=== PATIENT | male | born 1945 | race American Indian/Alaskan Native ===

== ENCOUNTER 2020-09-22 16:52 | Inpatient (IN) | payer MEDICARE ==
[2020-09-22] MEDS ORDERED: MELATONIN 5 MG TAB PO PRN (17:12)
[2020-09-22] MEDS: traZODone 50 MG TAB PO SCH (23:08)
[2020-09-23 05:50] LABS: Basophils % (Auto) 0.4 % (0.0-1.8); Eosinophils # (Auto) 0.1 K/mm3 (0.0-0.4); Eosinophils % (Auto) 0.8 % (0.0-4.3); Hematocrit 32.7 % (35.5-45.6); Hemoglobin 10.9 gm/dl (11.8-15.2); Lymphocytes # (Auto) 1.7 K/mm3 (1.2-5.4); Lymphocytes % (Auto) 24.8 % (13.4-35.0); Mean Corpuscular HGB Conc 33 % (32-34); Mean Corpuscular Volume 90 fl (84-94); Monocytes # (Auto) 0.5 K/mm3 (0.0-0.8); Platelet Count 167 K/mm3 (140-440); Red Blood Count 3.65 M/mm3 (3.65-5.03); Red Cell Distribution Width 14.7 % (13.2-15.2)
[2020-09-23 06:47] LABS: Alanine Aminotransferase 19 units/L (7-56); Albumin 2.8 g/dL (3.9-5); BUN/Creatinine Ratio 41; Blood Urea Nitrogen 41 mg/dL (9-20); Calcium 8.3 mg/dL (8.4-10.2); Chol/HDL Ratio 2.14 %; HDL Cholesterol 48 mg/dL (40-59); Hemolysis Index 7; LDL Cholesterol,Direct 51 mg/dL (50-130)
--- NOTE | 2020-09-23 08:05 | History and Physical Report ---
GP History & Physical - History of Present Illness Date of admission: 09/22/20 Date of Examination: 09/23/20 Reason for Admission: Impaired reality testing, Psychopathology interference History of Present Illness: HPI Patient is a 75-year-old , unemployed currently on social security benefit, male who states that he is currently has his own place that he went with no past psychiatric history and endorses past medical history of hypertension who was admitted to the facility for wandering and being delusional thinking that God is his brother. Today, patient states that this happens to him most time, he is walking on the street going back home and gets picked up and dropped in a hospital. he denies any prior psychiatric history or known drug use. Patient states he has a family in [place] that rarely checks on him and a son in [place] whom he rarely sees and has not contacted in over 50 years. PAST PSYCHIATRIC HISTORY Diagnoses: None Suicide attempts or Self-harm behavior: none Prior psychiatric hospitalizations: None Substance Abuse history: none Previous psychiatric medications tried: none Outpatient treatment: none PAST MEDICAL HISTORY: HTN Family Psychiatric History: None reported or documented SOCIAL HISTORY Marital Status: Living Arrangements: Rent Employment Status: [employer] Access to guns/weapons: none Education: 11th grade History of Abuse: none Legal History: yes REVIEW OF SYSTEMS Constitutional: Negative for weight loss ENT: Negative for stridor Respiratory: Negative for cough or hemoptysis All other systems reviewed and are negative MENTAL STATUS EXAMINATION General Appearance and Behavior: Age appropriate, good hygiene, wearing appropriate clothes, good eye contact, cooperative polite with questioning. Cooperation: Participating/engaged Psychomotor Behavior: unremarkable and within normal limits Mood: Good Affect and affective range: congruent with mood Thought Process: Fluent/Logical, Thought Content: Within reality, Speech: Normal volume, Regular rate and rhythm, Intellectual Functioning: Average Suicidal Ideation: Denies SI Homicidal Ideation: Denies HI Impulse Control: Unimpaired Insight and Judgment: Normal insight and judgment, Memory: Normal, Attention: Normal, Orientation: Alert, oriented, Assessment and Plan - Psychiatric problem (1) Unspecified episodic mood disorder Current Visit: Yes Status: Acute Treatment Plan Start Seroquel [facility] Patient admitted for inpatient psychiatric evaluation, medication adjustment and close monitoring The patient's behavior, mood, sleep and appetite will be closely monitored. Patient enrolled in individual and group therapeutic sessions and encouraged to attend. Patient provided with a safe and structured environment. Patient's physical health needs will be addressed by the Hospitalist. Hospitalist Consulted Labs including CBC, CMP, Lipid profile and Hemoglobin A1C levels ordered for baseline reference Social Assessment will be completed and the Auger Supervisor will work with patient and family to ensure a suitable and safe disposition Medication adjustment will be made as clinically indicated Usual Wellness Zoroastrian/Preservation: - Start Trazodone 50 mg po QHS & 50 mg po QHS PRN between 10 PM & 2 AM for insomnia - Start Melatonin 5 mg po QHS to promote circadian rhythm - Start [place]-3 for brain health, reduce impulsivity, and as adjunctive treatment for mood disorder, continue upon discharge given overall benefits. - Start B1 prophylaxis with 200 mg po for 5 days The patient agreed on the treatment plan, understood the risk, benefit, alternative treatment, potential consequence of no treatment, and gave informed consent. Initial Certification Inpatient psych services: I certify that the inpatient psychiatric services are required for treatment that could reasonably be expected to improve the patient's condition. Estimated days: 6 Post hospital care: primary care provider, psychiatric provider Legal Status: Voluntary Patient Problems: Current Active Problems Unspecified episodic mood disorder (Acute) Reaction to Hospitalization: Accepting Medications and Allergies Allergies Allergy/AdvReac Type Severity Reaction Status Date / Time aspirin Allergy Unknown Unverified 09/22/20 17:00 codeine Allergy Unknown Unverified 09/22/20 17:00 Home Medications Medication Instructions Recorded Confirmed Last Taken Type Apixaban [Eliquis] 5 mg PO BID 09/23/20 09/23/20 Unknown History AtorvaSTATin 10 mg PO HS 09/23/20 09/23/20 Unknown History Pantoprazole [Protonix TAB] 40 mg PO DAILY 09/23/20 09/23/20 Unknown History amLODIPine 5 mg PO DAILY 09/23/20 09/23/20 Unknown History hydrALAZINE [Apresoline TAB] 25 mg PO TID 09/23/20 09/23/20 Unknown History Active Meds: Active Medications Melatonin (Melatonin 5 Mg Tab) 5 mg PO QHS PRN PRN Reason: Sleep Trazodone HCl (Trazodone 50 Mg Tab) 50 mg PO QHS JOSELUIS Last Admin: 09/22/20 23:08 Dose: Not Given Documented by: Results - Results Labs/Vitals: Laboratory Last Values WBC 7.0 K/mm3 (4.5-11.0) 09/23/20 05:42 RBC 3.65 M/mm3 (3.65-5.03) 09/23/20 05:42 Hgb 10.9 gm/dl (11.8-15.2) L 09/23/20 05:42 Hct 32.7 % (35.5-45.6) L 09/23/20 05:42 MCV 90 fl (84-94) 09/23/20 05:42 MCH 30 pg (28-32) 09/23/20 05:42 MCHC 33 % (32-34) 09/23/20 05:42 RDW 14.7 % (13.2-15.2) 09/23/20 05:42 Plt Count 167 K/mm3 (140-440) 09/23/20 05:42 Lymph % (Auto) 24.8 % (13.4-35.0) 09/23/20 05:42 [place] % (Auto) 7.0 % (0.0-7.3) 09/23/20 05:42 Eos % (Auto) 0.8 % (0.0-4.3) 09/23/20 05:42 Baso % (Auto) 0.4 % (0.0-1.8) 09/23/20 05:42 Lymph # (Auto) 1.7 K/mm3 (1.2-5.4) 09/23/20 05:42 [place] # (Auto) 0.5 K/mm3 (0.0-0.8) 09/23/20 05:42 Eos # (Auto) 0.1 K/mm3 (0.0-0.4) 09/23/20 05:42 Baso # (Auto) 0.0 K/mm3 (0.0-0.1) 09/23/20 05:42 Seg Neutrophils % 67.0 % (40.0-70.0) 09/23/20 05:42 Seg Neutrophils # 4.7 K/mm3 (1.8-7.7) 09/23/20 05:42 Sodium 143 mmol/L (137-145) 09/23/20 05:42 Potassium 4.0 mmol/L (3.6-5.0) 09/23/20 05:42 Chloride 108.2 mmol/L (98-107) H 09/23/20 05:42 Carbon Dioxide 27 mmol/L (22-30) 09/23/20 05:42 Anion Gap 12 mmol/L 09/23/20 05:42 BUN 41 mg/dL (9-20) H 09/23/20 05:42 Creatinine 1.0 mg/dL (0.8-1.3) 09/23/20 05:42 Estimated GFR > 60 ml/min 09/23/20 05:42 BUN/Creatinine Ratio 41 % 09/23/20 05:42 Glucose 101 mg/dL (75-100) H 09/23/20 05:42 Hemoglobin A1c 5.8 % (4-6) 09/23/20 05:42 Calcium 8.3 mg/dL (8.4-10.2) L 09/23/20 05:42 Total Bilirubin 0.20 mg/dL (0.1-1.2) 09/23/20 05:42 AST 21 units/L (5-40) 09/23/20 05:42 ALT 19 units/L (7-56) 09/23/20 05:42 Alkaline Phosphatase 60 units/L (35-129) 09/23/20 05:42 Total Protein 5.2 g/dL (6.3-8.2) L 09/23/20 05:42 Albumin 2.8 g/dL (3.9-5) L 09/23/20 05:42 Albumin/Globulin Ratio 1.2 % 09/23/20 05:42 Triglycerides 64 mg/dL (2-149) 09/23/20 05:42 Cholesterol 103 mg/dL (50-199) 09/23/20 05:42 LDL Cholesterol Direct 51 mg/dL (50-130) 09/23/20 05:42 HDL Cholesterol 48 mg/dL (40-59) 09/23/20 05:42 Cholesterol/HDL Ratio 2.14 % 09/23/20 05:42 TSH 1.190 mlU/mL (0.270-4.200) 09/23/20 05:42 Assessment and Plan - Psychiatric problem (1) Unspecified episodic mood disorder Current Visit: Yes Status: Acute Physician Certification - Certification Statement Physician Certification Statement: This is an acknowledgement statement that DERICK PINK is a 75 year old M who requires inpatient psychiatric admission for treatment which could reasonably be expected to improve the patient's condition for Estimated period of time patient will need to remain in the hospital: [ ] Plan for post-hospital care: [ ]
--- NOTE | 2020-09-23 09:58 | Consultation ---
History of Present Illness - Reason for Consult Consult date: 09/23/20 Medical consult Requesting physician: RUBA PABLO - History of Present Illness 75-year-old male patient with significant past medical history of hypertension, altered level of consciousness dementia was admitted through emergency room to [facility] for further evaluation and management of patient's impaired reality testing, for wandering and for delusional thinking and behavior, patient thinks that God is his brother, and then intermittently confused. Hospitalist service was requested for medical consult. Patient has history of hypertension on amlodipine and hydralazine As well as encephalopathy and possible dementia At the time of my evaluation patient did not have any new complaints Denies chest pain or shortness of breath Denies headache or dizziness Denies nausea or vomiting Patient is calm and composed no agitation or aggression No delusional thoughts or behavior Past History Past Medical History: atrial fib, hypertension, hyperlipidemia, other (Encephalopathy, delusional behavior, schizophrenia) Past Surgical History: Other (Pacemaker) Social history: denies: smoking, alcohol abuse Family history: no significant family history Medications and Allergies Allergies Allergy/AdvReac Type Severity Reaction Status Date / Time aspirin Allergy Unknown Unverified 09/22/20 17:00 codeine Allergy Unknown Unverified 09/22/20 17:00 Home Medications Medication Instructions Recorded Confirmed Last Taken Type Apixaban [Eliquis] 5 mg PO BID 09/23/20 09/23/20 Unknown History AtorvaSTATin 10 mg PO HS 09/23/20 09/23/20 Unknown History Pantoprazole [Protonix TAB] 40 mg PO DAILY 09/23/20 09/23/20 Unknown History amLODIPine 5 mg PO DAILY 09/23/20 09/23/20 Unknown History hydrALAZINE [Apresoline TAB] 25 mg PO TID 09/23/20 09/23/20 Unknown History Active Meds: Active Medications Melatonin (Melatonin 5 Mg Tab) 5 mg PO QHS PRN PRN Reason: Sleep Quetiapine Fumarate (Quetiapine 100 Mg Tab) 100 mg PO QHS JOSELUIS Trazodone HCl (Trazodone 50 Mg Tab) 50 mg PO QHS JOSELUIS Last Admin: 09/22/20 23:08 Dose: Not Given Documented by: Review of Systems Constitutional: weakness, no weight loss, no weight gain, no fever Ears, nose, mouth and throat: no nasal congestion, no nasal discharge Cardiovascular: no chest pain, no orthopnea Respiratory: no cough, no shortness of breath Gastrointestinal: no abdominal pain, no nausea, no vomiting Genitourinary Male: no dysuria, no hematuria, no flank pain Musculoskeletal: no myalgias, no arthritis Integumentary: no rash, no lesions Neurological: no seizures, no syncope Psychiatric: paranoia, anxiety attacks, confusion, other Endocrine: no cold intolerance, no heat intolerance Hematologic/Lymphatic: no easy bruising, no easy bleeding Allergic/Immunologic: no urticaria, no allergic rhinitis Exam - Constitutional General appearance: Present: no acute distress, well-nourished - EENT Eyes: Present: PERRL, EOM intact ENT: hearing intact, clear oral mucosa - Neck Neck: Present: supple, normal ROM - Respiratory Respiratory effort: normal Respiratory: bilateral: diminished, negative: rales, rhonchi, wheezing - Cardiovascular Rhythm: regular Heart Sounds: Present: S1 & S2 - Extremities Extremities: no ischemia, No edema - Abdominal General gastrointestinal: Present: soft, non-tender, non-distended, normal bowel sounds - Integumentary Integumentary: Present: clear, warm - Musculoskeletal Musculoskeletal: strength equal bilaterally, generalized weakness - Psychiatric Psychiatric: appropriate mood/affect, other (Confused at times) - Neurologic Neurologic: moves all extremities Results - Labs CBC & Chem 7: 09/23/20 05:42 09/23/20 05:42 Labs: Abnormal lab results 09/23/20 09/23/20 Range/Units 05:42 05:42 Hgb 10.9 L (11.8-15.2) gm/dl Hct 32.7 L (35.5-45.6) % Chloride 108.2 H (98-107) mmol/L BUN 41 H (9-20) mg/dL Glucose 101 H (75-100) mg/dL Calcium 8.3 L (8.4-10.2) mg/dL Total Protein 5.2 L (6.3-8.2) g/dL Albumin 2.8 L (3.9-5) g/dL Assessment and Plan --Schizophrenia; Management per psych --Hypertension; moderate control Resume home antihypertensives and as needed medications --History of A. fib; Rate controlled. Continue current management Resume chronic anticoagulation with Eliquis --Dyslipidemia; Resume home statin --DVT prophylaxis; Patient is already on Eliquis --DC planning; per case management We will closely monitor the patient and adjust the management as needed Plan of care reviewed with the patient's nurse Thank you for this consultation We will follow the patient along with you as needed Call us with questions or concerns
[2020-09-23] MEDS: hydrALAZINE 25 MG TAB PO SCH (20:57)
[2020-09-23] MEDS ORDERED: NON-FORMULARY EACH (Apixaban 5 MG Tablet) PO SCH (22:00)
[2020-09-23] MEDS: traZODone 50 MG TAB PO SCH (22:16)
[2020-09-23] MEDS: APIXABAN 5 MG TAB PO SCH (22:16)
[2020-09-23] MEDS: QUEtiapine 100 MG TAB PO SCH (22:16)
--- NOTE | 2020-09-24 07:43 | Progress Note ---
Subjective Date of service: 09/24/20 Principal diagnosis: Unspecified episodic mood disorder Subjective Comment: Psych Nurse: 1855 Pt calm and cooperative, always asking for food and something to drink, other than water. Slightly depressed, but participated in group.. Staff will continue to monitor. Psych Progress Note Patient seen this am, endorses a good night rest, states he cant wait to have breakfast this AM. Patient states he does not even known why he is here to begin with, nurse reports patient has been cooperative and calm, no behavioral disturbances. REVIEW OF SYSTEMS Constitutional: Negative for weight loss ENT: Negative for stridor Respiratory: Negative for cough or hemoptysis All other systems reviewed and are negative MENTAL STATUS EXAMINATION General Appearance and Behavior: Age appropriate, good hygiene, wearing appropriate clothes, good eye contact, cooperative polite with questioning. Cooperation: Participating/engaged Psychomotor Behavior: unremarkable and within normal limits Mood: Good Affect and affective range: congruent with mood Thought Process: Fluent/Logical, Thought Content: Within reality, Speech: Normal volume, Regular rate and rhythm, Intellectual Functioning: Average Suicidal Ideation: Denies SI Homicidal Ideation: Denies HI Impulse Control: Unimpaired Insight and Judgment: Normal insight and judgment, Memory: Normal, Attention: Normal, Orientation: Alert, oriented, Assessment and Plan - Psychiatric problem (1) Unspecified episodic mood disorder Current Visit: Yes Status: Acute Treatment Plan Start Seroquel QHS Patient admitted for inpatient psychiatric evaluation, medication adjustment and close monitoring The patient's behavior, mood, sleep and appetite will be closely monitored. Patient enrolled in individual and group therapeutic sessions and encouraged to attend. Patient provided with a safe and structured environment. Patient's physical health needs will be addressed by the Hospitalist. Hospitalist Consulted Labs including CBC, CMP, Lipid profile and Hemoglobin A1C levels ordered for baseline reference Social Assessment will be completed and the Rn Forensic will work with patient and family to ensure a suitable and safe disposition Medication adjustment will be made as clinically indicated Usual Wellness Episcopalian/Preservation: - Start Trazodone 50 mg po QHS & 50 mg po QHS PRN between 10 PM & 2 AM for insomnia - Start Melatonin 5 mg po QHS to promote circadian rhythm - Start [place]-3 for brain health, reduce impulsivity, and as adjunctive treatment for mood disorder, continue upon discharge given overall benefits. - Start B1 prophylaxis with 200 mg po for 5 days The patient agreed on the treatment plan, understood the risk, benefit, alternative treatment, potential consequence of no treatment, and gave informed consent. Initial Certification Inpatient psych services: I certify that the inpatient psychiatric services are required for treatment that could reasonably be expected to improve the patient's condition. Estimated days: 5 Post hospital care: primary care provider, psychiatric provider Assessment and Plan - Patient Problems (1) Unspecified episodic mood disorder Current Visit: Yes Status: Acute Medications and Allergies Allergies Allergy/AdvReac Type Severity Reaction Status Date / Time aspirin Allergy Unknown Unverified 09/22/20 17:00 codeine Allergy Unknown Unverified 09/22/20 17:00 Home Medications Medication Instructions Recorded Confirmed Last Taken Type Apixaban [Eliquis] 5 mg PO BID 09/23/20 09/23/20 Unknown History AtorvaSTATin 10 mg PO HS 09/23/20 09/23/20 Unknown History Pantoprazole [Protonix TAB] 40 mg PO DAILY 09/23/20 09/23/20 Unknown History amLODIPine 5 mg PO DAILY 09/23/20 09/23/20 Unknown History hydrALAZINE [Apresoline TAB] 25 mg PO TID 09/23/20 09/23/20 Unknown History Active Meds: Active Medications Amlodipine Besylate (Amlodipine 5 Mg Tab) 5 mg PO DAILY [facility] Apixaban (Apixaban 5 Mg Tab) 5 mg PO Q12HR [facility] Last Admin: 09/23/20 22:16 Dose: 5 mg Documented by: Atorvastatin Calcium (Atorvastatin 10 Mg Tab) 10 mg PO HS [facility] Last Admin: 09/23/20 22:16 Dose: 10 mg Documented by: Hydralazine HCl (Hydralazine 25 Mg Tab) 25 mg PO TID [facility] Last Admin: 09/23/20 20:57 Dose: 25 mg Documented by: Melatonin (Melatonin 5 Mg Tab) 5 mg PO QHS PRN PRN Reason: Sleep Pantoprazole Sodium (Pantoprazole 40 Mg Tab) 40 mg PO DAILY [facility] Quetiapine Fumarate (Quetiapine 100 Mg Tab) 100 mg PO QHS [facility] Last Admin: 09/23/20 22:16 Dose: 100 mg Documented by: Trazodone HCl (Trazodone 50 Mg Tab) 50 mg PO QHS [facility] Last Admin: 09/23/20 22:16 Dose: 50 mg Documented by: Results - Results Labs/Vitals: Laboratory Last Values WBC 7.0 K/mm3 (4.5-11.0) 09/23/20 05:42 RBC 3.65 M/mm3 (3.65-5.03) 09/23/20 05:42 Hgb 10.9 gm/dl (11.8-15.2) L 09/23/20 05:42 Hct 32.7 % (35.5-45.6) L 09/23/20 05:42 MCV 90 fl (84-94) 09/23/20 05:42 MCH 30 pg (28-32) 09/23/20 05:42 MCHC 33 % (32-34) 09/23/20 05:42 RDW 14.7 % (13.2-15.2) 09/23/20 05:42 Plt Count 167 K/mm3 (140-440) 09/23/20 05:42 Lymph % (Auto) 24.8 % (13.4-35.0) 09/23/20 05:42 [place] % (Auto) 7.0 % (0.0-7.3) 09/23/20 05:42 Eos % (Auto) 0.8 % (0.0-4.3) 09/23/20 05:42 Baso % (Auto) 0.4 % (0.0-1.8) 09/23/20 05:42 Lymph # (Auto) 1.7 K/mm3 (1.2-5.4) 09/23/20 05:42 [place] # (Auto) 0.5 K/mm3 (0.0-0.8) 09/23/20 05:42 Eos # (Auto) 0.1 K/mm3 (0.0-0.4) 09/23/20 05:42 Baso # (Auto) 0.0 K/mm3 (0.0-0.1) 09/23/20 05:42 Seg Neutrophils % 67.0 % (40.0-70.0) 09/23/20 05:42 Seg Neutrophils # 4.7 K/mm3 (1.8-7.7) 09/23/20 05:42 Sodium 143 mmol/L (137-145) 09/23/20 05:42 Potassium 4.0 mmol/L (3.6-5.0) 09/23/20 05:42 Chloride 108.2 mmol/L (98-107) H 09/23/20 05:42 Carbon Dioxide 27 mmol/L (22-30) 09/23/20 05:42 Anion Gap 12 mmol/L 09/23/20 05:42 BUN 41 mg/dL (9-20) H 09/23/20 05:42 Creatinine 1.0 mg/dL (0.8-1.3) 09/23/20 05:42 Estimated GFR > 60 ml/min 09/23/20 05:42 BUN/Creatinine Ratio 41 % 09/23/20 05:42 Glucose 101 mg/dL (75-100) H 09/23/20 05:42 Hemoglobin A1c 5.8 % (4-6) 09/23/20 05:42 Calcium 8.3 mg/dL (8.4-10.2) L 09/23/20 05:42 Total Bilirubin 0.20 mg/dL (0.1-1.2) 09/23/20 05:42 AST 21 units/L (5-40) 09/23/20 05:42 ALT 19 units/L (7-56) 09/23/20 05:42 Alkaline Phosphatase 60 units/L (35-129) 09/23/20 05:42 Total Protein 5.2 g/dL (6.3-8.2) L 09/23/20 05:42 Albumin 2.8 g/dL (3.9-5) L 09/23/20 05:42 Albumin/Globulin Ratio 1.2 % 09/23/20 05:42 Triglycerides 64 mg/dL (2-149) 09/23/20 05:42 Cholesterol 103 mg/dL (50-199) 09/23/20 05:42 LDL Cholesterol Direct 51 mg/dL (50-130) 09/23/20 05:42 HDL Cholesterol 48 mg/dL (40-59) 09/23/20 05:42 Cholesterol/HDL Ratio 2.14 % 09/23/20 05:42 TSH 1.190 mlU/mL (0.270-4.200) 09/23/20 05:42 Last Vital Signs Temp 98.4 F 09/23/20 22:00 Pulse 63 09/23/20 22:00 Resp 16 09/23/20 22:00 BP 126/60 09/23/20 22:00 Pulse Ox 96 09/23/20 22:00
[2020-09-24] MEDS: amLODIPine 5 MG TAB PO SCH (11:13)
[2020-09-24] MEDS: APIXABAN 5 MG TAB PO SCH ×2 (11:13→21:15)
[2020-09-24] MEDS: PANTOPRAZOLE 40 MG TAB PO SCH (11:14)
[2020-09-24] MEDS: hydrALAZINE 25 MG TAB PO SCH ×3 (11:14→20:26)
[2020-09-24] MEDS: traZODone 50 MG TAB PO SCH (21:15)
[2020-09-24] MEDS: QUEtiapine 100 MG TAB PO SCH (21:15)
--- NOTE | 2020-09-25 07:42 | Progress Note ---
Subjective Date of service: 09/25/20 Principal diagnosis: Unspecified episodic mood disorder Subjective Comment: Psych Nurse:pt has been calm and cooperative, alert and oriented to person and place, able to make needs known, medication compliant, good appetite, consumed 100% of snack, no complaints voiced, no distress noted, will continue to monitor for safety. Psych Progress Note Patient describes a good and stable mood, denies being depressed or excessively nervous. Patient eats and sleeps well. Patient denies panic attacks, recurrent nightmares or flashbacks. Patient denies symptoms suggestive of OCD or PTSD. Patient denies hallucinations, paranoia, thought interference and no features suggestive of hypomania or prakash. Patiently completely denies suicidal or homicidal thoughts. REVIEW OF SYSTEMS Constitutional: Negative for weight loss ENT: Negative for stridor Respiratory: Negative for cough or hemoptysis All other systems reviewed and are negative MENTAL STATUS EXAMINATION General Appearance and Behavior: Age appropriate, good hygiene, wearing appropriate clothes, good eye contact, cooperative polite with questioning. Cooperation: Participating/engaged Psychomotor Behavior: unremarkable and within normal limits Mood: Good Affect and affective range: congruent with mood Thought Process: Fluent/Logical, Thought Content: Within reality, Speech: Normal volume, Regular rate and rhythm, Intellectual Functioning: Average Suicidal Ideation: Denies SI Homicidal Ideation: Denies HI Impulse Control: Unimpaired Insight and Judgment: Normal insight and judgment, Memory: Normal, Attention: Normal, Orientation: Alert, oriented, Assessment and Plan - Psychiatric problem (1) Unspecified episodic mood disorder Current Visit: Yes Status: Acute Treatment Plan Start Seroquel QHS Patient admitted for inpatient psychiatric evaluation, medication adjustment and close monitoring The patient's behavior, mood, sleep and appetite will be closely monitored. Patient enrolled in individual and group therapeutic sessions and encouraged to attend. Patient provided with a safe and structured environment. Patient's physical health needs will be addressed by the Hospitalist. Hospitalist Consulted Labs including CBC, CMP, Lipid profile and Hemoglobin A1C levels ordered for baseline reference Social Assessment will be completed and the Manager Database Administration will work with patient and family to ensure a suitable and safe disposition Medication adjustment will be made as clinically indicated Usual Wellness Orthodoxy/Preservation: - Start Trazodone 50 mg po QHS & 50 mg po QHS PRN between 10 PM & 2 AM for insomnia - Start Melatonin 5 mg po QHS to promote circadian rhythm - Start Strunk-3 for brain health, reduce impulsivity, and as adjunctive treatment for mood disorder, continue upon discharge given overall benefits. - Start B1 prophylaxis with 200 mg po for 5 days The patient agreed on the treatment plan, understood the risk, benefit, alternative treatment, potential consequence of no treatment, and gave informed consent. Initial Certification Inpatient psych services: I certify that the inpatient psychiatric services are required for treatment that could reasonably be expected to improve the patient's condition. Estimated days: 4 Post hospital care: primary care provider, psychiatric provider Assessment and Plan - Patient Problems (1) Unspecified episodic mood disorder Current Visit: Yes Status: Acute Medications and Allergies Allergies Allergy/AdvReac Type Severity Reaction Status Date / Time aspirin Allergy Unknown Unverified 09/22/20 17:00 codeine Allergy Unknown Unverified 09/22/20 17:00 Home Medications Medication Instructions Recorded Confirmed Last Taken Type Apixaban [Eliquis] 5 mg PO BID 09/23/20 09/23/20 Unknown History AtorvaSTATin 10 mg PO HS 09/23/20 09/23/20 Unknown History Pantoprazole [Protonix TAB] 40 mg PO DAILY 09/23/20 09/23/20 Unknown History amLODIPine 5 mg PO DAILY 09/23/20 09/23/20 Unknown History hydrALAZINE [Apresoline TAB] 25 mg PO TID 09/23/20 09/23/20 Unknown History Active Meds: Active Medications Amlodipine Besylate (Amlodipine 5 Mg Tab) 5 mg PO DAILY [facility] Last Admin: 09/24/20 11:13 Dose: 5 mg Documented by: Apixaban (Apixaban 5 Mg Tab) 5 mg PO Q12HR [facility] Last Admin: 09/24/20 21:15 Dose: 5 mg Documented by: Atorvastatin Calcium (Atorvastatin 10 Mg Tab) 10 mg PO HS [facility] Last Admin: 09/24/20 21:15 Dose: 10 mg Documented by: Hydralazine HCl (Hydralazine 25 Mg Tab) 25 mg PO TID [facility] Last Admin: 09/24/20 20:26 Dose: 25 mg Documented by: Melatonin (Melatonin 5 Mg Tab) 5 mg PO QHS PRN PRN Reason: Sleep Pantoprazole Sodium (Pantoprazole 40 Mg Tab) 40 mg PO DAILY [facility] Last Admin: 09/24/20 11:14 Dose: 40 mg Documented by: Quetiapine Fumarate (Quetiapine 100 Mg Tab) 100 mg PO QHS [facility] Last Admin: 09/24/20 21:15 Dose: 100 mg Documented by: Trazodone HCl (Trazodone 50 Mg Tab) 50 mg PO QHS [facility] Last Admin: 09/24/20 21:15 Dose: 50 mg Documented by: Results - Results Labs/Vitals: Laboratory Last Values WBC 7.0 K/mm3 (4.5-11.0) 09/23/20 05:42 RBC 3.65 M/mm3 (3.65-5.03) 09/23/20 05:42 Hgb 10.9 gm/dl (11.8-15.2) L 09/23/20 05:42 Hct 32.7 % (35.5-45.6) L 09/23/20 05:42 MCV 90 fl (84-94) 09/23/20 05:42 MCH 30 pg (28-32) 09/23/20 05:42 MCHC 33 % (32-34) 09/23/20 05:42 RDW 14.7 % (13.2-15.2) 09/23/20 05:42 Plt Count 167 K/mm3 (140-440) 09/23/20 05:42 Lymph % (Auto) 24.8 % (13.4-35.0) 09/23/20 05:42 [place] % (Auto) 7.0 % (0.0-7.3) 09/23/20 05:42 Eos % (Auto) 0.8 % (0.0-4.3) 09/23/20 05:42 Baso % (Auto) 0.4 % (0.0-1.8) 09/23/20 05:42 Lymph # (Auto) 1.7 K/mm3 (1.2-5.4) 09/23/20 05:42 [place] # (Auto) 0.5 K/mm3 (0.0-0.8) 09/23/20 05:42 Eos # (Auto) 0.1 K/mm3 (0.0-0.4) 09/23/20 05:42 Baso # (Auto) 0.0 K/mm3 (0.0-0.1) 09/23/20 05:42 Seg Neutrophils % 67.0 % (40.0-70.0) 09/23/20 05:42 Seg Neutrophils # 4.7 K/mm3 (1.8-7.7) 09/23/20 05:42 Sodium 143 mmol/L (137-145) 09/23/20 05:42 Potassium 4.0 mmol/L (3.6-5.0) 09/23/20 05:42 Chloride 108.2 mmol/L (98-107) H 09/23/20 05:42 Carbon Dioxide 27 mmol/L (22-30) 09/23/20 05:42 Anion Gap 12 mmol/L 09/23/20 05:42 BUN 41 mg/dL (9-20) H 09/23/20 05:42 Creatinine 1.0 mg/dL (0.8-1.3) 09/23/20 05:42 Estimated GFR > 60 ml/min 09/23/20 05:42 BUN/Creatinine Ratio 41 % 09/23/20 05:42 Glucose 101 mg/dL (75-100) H 09/23/20 05:42 Hemoglobin A1c 5.8 % (4-6) 09/23/20 05:42 Calcium 8.3 mg/dL (8.4-10.2) L 09/23/20 05:42 Total Bilirubin 0.20 mg/dL (0.1-1.2) 09/23/20 05:42 AST 21 units/L (5-40) 09/23/20 05:42 ALT 19 units/L (7-56) 09/23/20 05:42 Alkaline Phosphatase 60 units/L (35-129) 09/23/20 05:42 Total Protein 5.2 g/dL (6.3-8.2) L 09/23/20 05:42 Albumin 2.8 g/dL (3.9-5) L 09/23/20 05:42 Albumin/Globulin Ratio 1.2 % 09/23/20 05:42 Triglycerides 64 mg/dL (2-149) 09/23/20 05:42 Cholesterol 103 mg/dL (50-199) 09/23/20 05:42 LDL Cholesterol Direct 51 mg/dL (50-130) 09/23/20 05:42 HDL Cholesterol 48 mg/dL (40-59) 09/23/20 05:42 Cholesterol/HDL Ratio 2.14 % 09/23/20 05:42 TSH 1.190 mlU/mL (0.270-4.200) 09/23/20 05:42 Last Vital Signs Temp 98.7 F 09/24/20 22:00 Pulse 63 09/24/20 22:00 Resp 15 09/24/20 22:00 BP 147/67 09/24/20 22:00 Pulse Ox 99 09/24/20 19:47
[2020-09-25] MEDS: amLODIPine 5 MG TAB PO SCH (09:18)
[2020-09-25] MEDS: PANTOPRAZOLE 40 MG TAB PO SCH (09:18)
[2020-09-25] MEDS: APIXABAN 5 MG TAB PO SCH ×2 (09:18→21:08)
[2020-09-25] MEDS: hydrALAZINE 25 MG TAB PO SCH ×3 (09:19→20:56)
--- NOTE | 2020-09-25 10:07 | Discharge Summary ---
Providers - Providers Date of Admission: 09/22/20 22:43 Date of discharge: 09/25/20 Attending physician: RUBA PABLO MD 09/22/20 17:09 Consult to Physician [CONS] Routine Comment: Consulting Provider: MARKO ELLIS Physician Instructions: Reason For Exam: Med Magt Primary care physician: TECHNOLOGY EDUCATION TEACHER Hospitalization Reason for admission: Psychopathological interference Condition: Good Hospital course: The patient was provided inpatient psychiatric treatment with safe and supportive environment, group/individual therapy, psychiatric medication, medication adjustment, adverse effect monitor, medical evaluation, medical treatment, social service assessment, social support meeting, placement ass essment and psycho-education. The patients mood, cognition, behavior, motivation, compliance to treatment and appreciation on family/social support are improved and stabilized. At the time of discharge, the patient had no suicidal ideas, no homicidal ideas, no aggressive thoughts, no endangering behavior and no debilitating adverse effects. The patient agreed on the treatment plan, understood the risk, benefit, alternative treatment, potential consequence of no treatment, and gave informed consent. Over 35 minutes spent for discharge process, education and behavioral Disposition: DC-01 TO HOME OR SELFCARE Allergies/Adverse Reactions: Allergies aspirin Allergy (Unverified 09/22/20 17:00) Unknown codeine Allergy (Unverified 09/22/20 17:00) Unknown Vital Signs: Last Vital Signs Temp 98.6 F 09/25/20 08:22 Pulse 56 L 09/25/20 09:19 Resp 18 09/25/20 08:22 BP 107/50 09/25/20 09:19 Pulse Ox 94 09/25/20 08:22 Last Lab: Laboratory Last Values WBC 7.0 K/mm3 (4.5-11.0) 09/23/20 05:42 RBC 3.65 M/mm3 (3.65-5.03) 09/23/20 05:42 Hgb 10.9 gm/dl (11.8-15.2) L 09/23/20 05:42 Hct 32.7 % (35.5-45.6) L 09/23/20 05:42 MCV 90 fl (84-94) 09/23/20 05:42 MCH 30 pg (28-32) 09/23/20 05:42 MCHC 33 % (32-34) 09/23/20 05:42 RDW 14.7 % (13.2-15.2) 09/23/20 05:42 Plt Count 167 K/mm3 (140-440) 09/23/20 05:42 Lymph % (Auto) 24.8 % (13.4-35.0) 09/23/20 05:42 [place] % (Auto) 7.0 % (0.0-7.3) 09/23/20 05:42 Eos % (Auto) 0.8 % (0.0-4.3) 09/23/20 05:42 Baso % (Auto) 0.4 % (0.0-1.8) 09/23/20 05:42 Lymph # (Auto) 1.7 K/mm3 (1.2-5.4) 09/23/20 05:42 [place] # (Auto) 0.5 K/mm3 (0.0-0.8) 09/23/20 05:42 Eos # (Auto) 0.1 K/mm3 (0.0-0.4) 09/23/20 05:42 Baso # (Auto) 0.0 K/mm3 (0.0-0.1) 09/23/20 05:42 Seg Neutrophils % 67.0 % (40.0-70.0) 09/23/20 05:42 Seg Neutrophils # 4.7 K/mm3 (1.8-7.7) 09/23/20 05:42 Sodium 143 mmol/L (137-145) 09/23/20 05:42 Potassium 4.0 mmol/L (3.6-5.0) 09/23/20 05:42 Chloride 108.2 mmol/L (98-107) H 09/23/20 05:42 Carbon Dioxide 27 mmol/L (22-30) 09/23/20 05:42 Anion Gap 12 mmol/L 09/23/20 05:42 BUN 41 mg/dL (9-20) H 09/23/20 05:42 Creatinine 1.0 mg/dL (0.8-1.3) 09/23/20 05:42 Estimated GFR > 60 ml/min 09/23/20 05:42 BUN/Creatinine Ratio 41 % 09/23/20 05:42 Glucose 101 mg/dL (75-100) H 09/23/20 05:42 Hemoglobin A1c 5.8 % (4-6) 09/23/20 05:42 Calcium 8.3 mg/dL (8.4-10.2) L 09/23/20 05:42 Total Bilirubin 0.20 mg/dL (0.1-1.2) 09/23/20 05:42 AST 21 units/L (5-40) 09/23/20 05:42 ALT 19 units/L (7-56) 09/23/20 05:42 Alkaline Phosphatase 60 units/L (35-129) 09/23/20 05:42 Total Protein 5.2 g/dL (6.3-8.2) L 09/23/20 05:42 Albumin 2.8 g/dL (3.9-5) L 09/23/20 05:42 Albumin/Globulin Ratio 1.2 % 09/23/20 05:42 Triglycerides 64 mg/dL (2-149) 09/23/20 05:42 Cholesterol 103 mg/dL (50-199) 09/23/20 05:42 LDL Cholesterol Direct 51 mg/dL (50-130) 09/23/20 05:42 HDL Cholesterol 48 mg/dL (40-59) 09/23/20 05:42 Cholesterol/HDL Ratio 2.14 % 09/23/20 05:42 TSH 1.190 mlU/mL (0.270-4.200) 09/23/20 05:42 - Discharge Diagnoses (1) Unspecified episodic mood disorder Status: Acute Core Measure Documentation - Palliative Care Palliative Care/ Comfort Measures: Not Applicable - Core Measures Any of the following diagnoses?: none Exam - Constitutional Vitals: Temp Pulse Resp BP Pulse Ox 98.6 F 56 L 18 107/50 94 09/25/20 08:22 09/25/20 09:19 09/25/20 08:22 09/25/20 09:19 09/25/20 08:22 General appearance: Present: no acute distress - EENT Eyes: Present: PERRL, EOM intact ENT: hearing intact, clear oral mucosa - Neck Neck: Present: supple, normal ROM - Respiratory Respiratory effort: normal - Abdominal Male genitourinary: Present: deferred Plan Care Plan Goals: Goals: Maintain good and stable mental health. Plan of Treatment: The patient should be compliant with medications, not to use drugs and not to drink alcohol. The patient understands that if suicidal ideas, homicidal ideas, or any endangering thoughts arise, the patient should immediately seek for emergent assistance including but not limited to crisis hot line and emergency room. Follow up with outpatient Psychiatrist and PCP within 7 - 14 days of discharge. Follow up with: PRIMARY CARE,MD [Primary Care Provider] - 7 Days Prescriptions: traZODone [Desyrel] 50 mg PO QHS #30 tablet QUEtiapine [SEROquel] 100 mg PO QHS #30 tablet
--- NOTE | 2020-09-25 17:51 | Progress Note ---
Assessment and Plan Assessment and plan: --Schizophrenia; Management per psych --Hypertension; moderate control Continue antihypertensives and as needed medications --History of A. fib; Rate controlled. Continue current management Continue Eliquis --Dyslipidemia; Continue statin --DVT prophylaxis; Patient is already on Eliquis --DC planning; per case management We will closely monitor the patient and adjust the management as needed Plan of care reviewed with the patient's nurse Continue current management Patient is medically stable for discharge Patient needs to follow-up with his primary care physician for his medical needs I will sign off, call us with questions symptoms Thank you for this consultation History Interval history: I have seen and examined the patient in the activity room. Patient is calm and composed, no agitation aggression Says he feels better, anxious to go home Nurse reports that patient is being discharged He will be going home tomorrow No new complaints Vital signs reviewed Hospitalist Physical - Constitutional Vitals: Temp Pulse Resp BP Pulse Ox 98.6 F 56 L 18 133/65 97 09/25/20 08:22 09/25/20 14:19 09/25/20 08:22 09/25/20 13:46 09/25/20 13:46 General appearance: Present: no acute distress, well-nourished - EENT Eyes: Present: PERRL, EOM intact - Neck Neck: Present: supple, normal ROM - Respiratory Respiratory effort: normal Respiratory: bilateral: diminished, negative: rales, rhonchi, wheezing - Cardiovascular Rhythm: regular Heart Sounds: Present: S1 & S2 - Extremities Extremities: no ischemia, No edema - Abdominal General gastrointestinal: soft, non-tender, non-distended, normal bowel sounds - Integumentary Integumentary: Present: clear, warm - Psychiatric Psychiatric: appropriate mood/affect, cooperative - Neurologic Neurologic: moves all extremities Results - Labs CBC & Chem 7: 09/23/20 05:42 09/23/20 05:42 Labs: Laboratory Last Values WBC 7.0 K/mm3 (4.5-11.0) 09/23/20 05:42 RBC 3.65 M/mm3 (3.65-5.03) 09/23/20 05:42 Hgb 10.9 gm/dl (11.8-15.2) L 09/23/20 05:42 Hct 32.7 % (35.5-45.6) L 09/23/20 05:42 MCV 90 fl (84-94) 09/23/20 05:42 MCH 30 pg (28-32) 09/23/20 05:42 MCHC 33 % (32-34) 09/23/20 05:42 RDW 14.7 % (13.2-15.2) 09/23/20 05:42 Plt Count 167 K/mm3 (140-440) 09/23/20 05:42 Lymph % (Auto) 24.8 % (13.4-35.0) 09/23/20 05:42 [place] % (Auto) 7.0 % (0.0-7.3) 09/23/20 05:42 Eos % (Auto) 0.8 % (0.0-4.3) 09/23/20 05:42 Baso % (Auto) 0.4 % (0.0-1.8) 09/23/20 05:42 Lymph # (Auto) 1.7 K/mm3 (1.2-5.4) 09/23/20 05:42 [place] # (Auto) 0.5 K/mm3 (0.0-0.8) 09/23/20 05:42 Eos # (Auto) 0.1 K/mm3 (0.0-0.4) 09/23/20 05:42 Baso # (Auto) 0.0 K/mm3 (0.0-0.1) 09/23/20 05:42 Seg Neutrophils % 67.0 % (40.0-70.0) 09/23/20 05:42 Seg Neutrophils # 4.7 K/mm3 (1.8-7.7) 09/23/20 05:42 Sodium 143 mmol/L (137-145) 09/23/20 05:42 Potassium 4.0 mmol/L (3.6-5.0) 09/23/20 05:42 Chloride 108.2 mmol/L (98-107) H 09/23/20 05:42 Carbon Dioxide 27 mmol/L (22-30) 09/23/20 05:42 Anion Gap 12 mmol/L 09/23/20 05:42 BUN 41 mg/dL (9-20) H 09/23/20 05:42 Creatinine 1.0 mg/dL (0.8-1.3) 09/23/20 05:42 Estimated GFR > 60 ml/min 09/23/20 05:42 BUN/Creatinine Ratio 41 % 09/23/20 05:42 Glucose 101 mg/dL (75-100) H 09/23/20 05:42 Hemoglobin A1c 5.8 % (4-6) 09/23/20 05:42 Calcium 8.3 mg/dL (8.4-10.2) L 09/23/20 05:42 Total Bilirubin 0.20 mg/dL (0.1-1.2) 09/23/20 05:42 AST 21 units/L (5-40) 09/23/20 05:42 ALT 19 units/L (7-56) 09/23/20 05:42 Alkaline Phosphatase 60 units/L (35-129) 09/23/20 05:42 Total Protein 5.2 g/dL (6.3-8.2) L 09/23/20 05:42 Albumin 2.8 g/dL (3.9-5) L 09/23/20 05:42 Albumin/Globulin Ratio 1.2 % 09/23/20 05:42 Triglycerides 64 mg/dL (2-149) 09/23/20 05:42 Cholesterol 103 mg/dL (50-199) 09/23/20 05:42 LDL Cholesterol Direct 51 mg/dL (50-130) 09/23/20 05:42 HDL Cholesterol 48 mg/dL (40-59) 09/23/20 05:42 Cholesterol/HDL Ratio 2.14 % 09/23/20 05:42 TSH 1.190 mlU/mL (0.270-4.200) 09/23/20 05:42 Jeffrey/IV: Voiding Method Toilet Active Medications - Current Medications Current Medications: Generic Name Dose Route Start Last Admin Trade Name Freq PRN Reason Stop Dose Admin Amlodipine Besylate 5 mg 09/24/20 10:00 09/25/20 09:18 Amlodipine 5 Mg Tab PO Not Given DAILY JOSELUIS Apixaban 5 mg 09/23/20 22:00 09/25/20 09:18 Apixaban 5 Mg Tab PO 5 mg Q12HR JOSELU[facility] Administration Atorvastatin Calcium 10 mg 09/23/20 22:00 09/24/20 21:15 Atorvastatin 10 Mg Tab PO 10 mg HS JOSELUIS Administration Hydralazine HCl 25 mg 09/23/20 20:00 09/25/20 14:19 Hydralazine 25 Mg Tab PO Not Given TID JOSELUIS Melatonin 5 mg 09/22/20 17:12 Melatonin 5 Mg Tab PO QHS PRN Sleep Pantoprazole Sodium 40 mg 09/24/20 10:00 09/25/20 09:18 Pantoprazole 40 Mg Tab PO 40 mg DAILY JOSELUIS Administration Quetiapine Fumarate 100 mg 09/23/20 22:00 09/24/20 21:15 Quetiapine 100 Mg Tab PO 100 mg QHS JOSELUIS Administration Trazodone HCl 50 mg 09/22/20 22:00 09/24/20 21:15 Trazodone 50 Mg Tab PO 50 mg QHS JOSELUIS Administration
[2020-09-25] MEDS: traZODone 50 MG TAB PO SCH (21:08)
[2020-09-25] MEDS: QUEtiapine 100 MG TAB PO SCH (21:08)
[2020-09-26] MEDS: hydrALAZINE 25 MG TAB PO SCH (08:04)
--- NOTE | 2020-09-26 08:07 | Discharge Summary ---
Providers - Providers Date of Admission: 09/22/20 22:43 Date of discharge: 09/26/20 Attending physician: RUBA PABLO MD 09/22/20 17:09 Consult to Physician [CONS] Routine Comment: Consulting Provider: MARKO ELLIS Physician Instructions: Reason For Exam: Med Magt Primary care physician: HEBREW CANTOR Hospitalization Reason for admission: psychosis Admitting Diagnosis: F20.9 - SCHIZOPHRENIA, UNSPECIFIED Condition: Stable Hospital course: The patient was provided inpatient psychiatric treatment with safe and supportive care, medication adjustment, adverse effect monitoring, medical evaluations, medical treatments, assessment and psycho-education. The patient's mood, cognition, behavior, moral support are improved and stabilized. St the time of discharge, the patient had no endangering behavior and no debilitating adverse effects. The patient agreed on potential consequences of no treatment and gave informed consent. Disposition: - TO HOME OR SELFCARE Time spent for discharge: 38 Allergies/Adverse Reactions: Allergies aspirin Allergy (Unverified 09/22/20 17:00) Unknown codeine Allergy (Unverified 09/22/20 17:00) Unknown Vital Signs: Last Vital Signs Temp 98.6 F 09/26/20 07:36 Pulse 59 L 09/26/20 07:36 Resp 16 09/26/20 07:36 BP 129/64 09/26/20 07:36 Pulse Ox 94 09/26/20 07:36 Last Lab: Laboratory Last Values WBC 7.0 K/mm3 (4.5-11.0) 09/23/20 05:42 RBC 3.65 M/mm3 (3.65-5.03) 09/23/20 05:42 Hgb 10.9 gm/dl (11.8-15.2) L 09/23/20 05:42 Hct 32.7 % (35.5-45.6) L 09/23/20 05:42 MCV 90 fl (84-94) 09/23/20 05:42 MCH 30 pg (28-32) 09/23/20 05:42 MCHC 33 % (32-34) 09/23/20 05:42 RDW 14.7 % (13.2-15.2) 09/23/20 05:42 Plt Count 167 K/mm3 (140-440) 09/23/20 05:42 Lymph % (Auto) 24.8 % (13.4-35.0) 09/23/20 05:42 [place] % (Auto) 7.0 % (0.0-7.3) 09/23/20 05:42 Eos % (Auto) 0.8 % (0.0-4.3) 09/23/20 05:42 Baso % (Auto) 0.4 % (0.0-1.8) 09/23/20 05:42 Lymph # (Auto) 1.7 K/mm3 (1.2-5.4) 09/23/20 05:42 [place] # (Auto) 0.5 K/mm3 (0.0-0.8) 09/23/20 05:42 Eos # (Auto) 0.1 K/mm3 (0.0-0.4) 09/23/20 05:42 Baso # (Auto) 0.0 K/mm3 (0.0-0.1) 09/23/20 05:42 Seg Neutrophils % 67.0 % (40.0-70.0) 09/23/20 05:42 Seg Neutrophils # 4.7 K/mm3 (1.8-7.7) 09/23/20 05:42 Sodium 143 mmol/L (137-145) 09/23/20 05:42 Potassium 4.0 mmol/L (3.6-5.0) 09/23/20 05:42 Chloride 108.2 mmol/L (98-107) H 09/23/20 05:42 Carbon Dioxide 27 mmol/L (22-30) 09/23/20 05:42 Anion Gap 12 mmol/L 09/23/20 05:42 BUN 41 mg/dL (9-20) H 09/23/20 05:42 Creatinine 1.0 mg/dL (0.8-1.3) 09/23/20 05:42 Estimated GFR > 60 ml/min 09/23/20 05:42 BUN/Creatinine Ratio 41 % 09/23/20 05:42 Glucose 101 mg/dL (75-100) H 09/23/20 05:42 Hemoglobin A1c 5.8 % (4-6) 09/23/20 05:42 Calcium 8.3 mg/dL (8.4-10.2) L 09/23/20 05:42 Total Bilirubin 0.20 mg/dL (0.1-1.2) 09/23/20 05:42 AST 21 units/L (5-40) 09/23/20 05:42 ALT 19 units/L (7-56) 09/23/20 05:42 Alkaline Phosphatase 60 units/L (35-129) 09/23/20 05:42 Total Protein 5.2 g/dL (6.3-8.2) L 09/23/20 05:42 Albumin 2.8 g/dL (3.9-5) L 09/23/20 05:42 Albumin/Globulin Ratio 1.2 % 09/23/20 05:42 Triglycerides 64 mg/dL (2-149) 09/23/20 05:42 Cholesterol 103 mg/dL (50-199) 09/23/20 05:42 LDL Cholesterol Direct 51 mg/dL (50-130) 09/23/20 05:42 HDL Cholesterol 48 mg/dL (40-59) 09/23/20 05:42 Cholesterol/HDL Ratio 2.14 % 09/23/20 05:42 TSH 1.190 mlU/mL (0.270-4.200) 09/23/20 05:42 Core Measure Documentation - Palliative Care Palliative Care/ Comfort Measures: Not Applicable - Core Measures Any of the following diagnoses?: none Exam - Constitutional Vitals: Temp Pulse Resp BP Pulse Ox 98.6 F 59 L 16 129/64 94 09/26/20 07:36 09/26/20 07:36 09/26/20 07:36 09/26/20 07:36 09/26/20 07:36 General appearance: Present: no acute distress - EENT Eyes: Present: PERRL, EOM intact ENT: hearing intact, clear oral mucosa - Neck Neck: Present: supple, normal ROM - Respiratory Respiratory effort: normal Plan Activity: advance as tolerated Weight Bearing Status: Weight Bear as Tolerated Care Plan Goals: Goals: Maintain good and stable mental health. Plan of Treatment: The patient should be compliant with medications, not to use drugs and not to drink alcohol. The patient understands that if suicidal ideas, homicidal ideas, or any endangering thoughts arise, the patient should immediately seek for emergent assistance including but not limited to crisis hot line and emergency room. Follow up with outpatient Psychiatrist and PCP within 7 - 14 days of discharge. Follow up with: PRIMARY CARE, [Primary Care Provider] - 7 Days Prescriptions: traZODone [Desyrel] 50 mg PO QHS #30 tablet QUEtiapine [SEROquel] 100 mg PO QHS #30 tablet
[2020-09-26] MEDS: PANTOPRAZOLE 40 MG TAB PO SCH (09:03)
[2020-09-26] MEDS: APIXABAN 5 MG TAB PO SCH (09:04)
[2020-09-26] MEDS: amLODIPine 5 MG TAB PO SCH (09:08)
[2020-09-26 09:09] VITALS: BP 117/56
== END 2020-09-26 09:52 | disposition home or self-care (01) | DRG 885 ==
LOC: 3A 16:52 → UNDOADMIN 16:52 → 5A 22:43
PROVIDERS: ADMIT Psychiatry & Neurology Psychiatry; ATTEND Psychiatry & Neurology Psychiatry
DX: F39 Unspecified mood [affective] disorder (principal); F20.9 Schizophrenia, unspecified; I48.91 Unspecified atrial fibrillation; I10 Essential (primary) hypertension; E78.5 Hyperlipidemia, unspecified; Z88.6 Allergy status to analgesic agent; Z88.5 Allergy status to narcotic agent; Z88.8 Allergy status to other drugs, medicaments and biological substances; Z95.0 Presence of cardiac pacemaker
CPT/HCPCS: 36415; 80053; 80061; 83036; 84443; 85025; G0378; A9270-GY